=== PATIENT | female | born 1990 | race Caucasian/White ===

== ENCOUNTER 2021-08-16 14:22 | Observation (INO) ==
[2021-08-16] MEDS ORDERED: PROCHLORPERAZINE 10 MG/2 ML VIAL IV ONE (14:46)
[2021-08-16] MEDS ORDERED: morphine 4 MG/ML VIAL IV ONE (14:46)
[2021-08-16] MEDS ORDERED: 0.9 % SODIUM CHLORIDE 1,000 ML IV ONE (14:46)
--- NOTE | 2021-08-16 14:52 | Emergency Department Note ---
Abdominal Pain HPI General Chief Complaint: Abdominal Pain Stated Complaint: Abdominal Pain Time Seen by Provider: 08/16/21 14:26 Source: patient, RN notes reviewed, old records reviewed and other (Provider from [facility] emergency department) Mode of arrival: ambulatory Limitations: no limitations History of Present Illness HPI Narrative: Narrative: 30-year-old female complaining of right upper quadrant pain x3 days moderate pain increasing in intensity. Patient has been diagnosed with gallstones in the past. Patient was seen and another emergency department treated for pain with IV fluids labs were done and then patient ultrasound was obtained today positive for cholecystitis. Patient is referred to [facility] emergency department for evaluation by general surgeon. Complaint: abdominal pain Onset (ago): day(s) (3) Consistency: constant Location: RUQ Severity: moderate Quality: aching Radiation: back Migration to: no migration Improves with: nothing Worsens with: eating Context: history of similar episodes Associated symptoms: Reports nausea, vomiting and anorexia; Denies diarrhea, fever, chills, constipation, dysuria, hematemesis, hematochezia, melena, hematuria, syncope and other Treatments prior to arrival: prescription analgesics Related Data Previous Rx's Medication Instructions Recorded promethazine 25 mg PO Q4-6HP PRN #14 tab 04/01/20 Allergies Allergy/AdvReac Type Severity Reaction Status Date / Time latex Allergy Rash Verified 04/01/20 16:12 Review of Systems ROS ROS Narrative: Narrative: All systems ED: reviewed and negative except as stated. [facility] Narrative Patient History Narrative: Narrative: Medical/Surgical/Family History All Active Problems (Updated 08/16/21 @ 14:52 by Carlos Bruce MD) Benign paroxysmal positional vertigo (Acute) Acute cholecystitis (Acute) Social History Smoking Status: Never smoker Exam Narrative Narrative: Narrative: General Limitations: no limitations General appearance: Present alert and in no apparent distress Head Head: Present atraumatic and normocephalic Eye Eye: Present normal appearance, PERRL and EOMI ENT ENT: Present normal exam and mucous membranes moist Neck Neck: Present normal inspection and full ROM Chest Chest: Present normal inspection; Absent tenderness Respiratory Respiratory: Present normal lung sounds bilaterally; Absent respiratory distress Cardiovascular Cardiovascular: Present regular rate and normal rhythm; Absent systolic murmur Adbominal Abdominal: Present soft, tenderness, rigidity, diminished bowel sounds and Easton's sign; Absent distention, guarding, rebound, organomegaly, trauma, psoas sign, tenderness at McBurney's Point, ascites, mass, bruit, pulsatile mass, hernia and scar Extremities Extremities: Present normal inspection and full ROM; Absent tenderness, pedal edema and pretibial edema Back Back: Present normal inspection; Absent CVA tenderness (R) and CVA tenderness (L) Neurological Neurological: Present alert and oriented X3 Psychiatric Psychiatric: Present normal affect and normal mood Skin Skin: Present warm (WNL); Absent rash Course Vital Signs Vital signs: Vital Signs Temperature 98.1 F 08/16/21 14:24 Pulse Rate 92 H 08/16/21 14:24 Respiratory Rate 18 08/16/21 14:24 Blood Pressure 103/50 08/16/21 14:24 Pulse Oximetry (%) 99 08/16/21 14:24 Temperature 98.1 F 08/16/21 14:24 Pulse Rate 92 H 08/16/21 14:24 Respiratory Rate 18 08/16/21 14:24 Blood Pressure 103/50 08/16/21 14:24 Pulse Oximetry (%) 99 08/16/21 14:24 [facility] MDM Narrative Medical decision making narrative: Narrative: Patient arrives with gallstones positive cholecystitis ultrasound report labs from yesterday that are unremarkable her urine dip and urine are negative here in the emergency department. Patient was recently placed on n.p.o. received IV fluids and I discussed patient Dr. Hiro Narayan of general surgery who graciously agreed to evaluate patient in the emergency department. 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
[2021-08-16] MEDS ORDERED: ONDANSETRON 4 MG/2 ML VIAL IV PRN (15:00)
--- NOTE | 2021-08-16 15:00 | General Surg History&Physical ---
HPI History of Present Illness Patient information: Note initiated : 08/16/21 at 2:56 pm Service Date, if different from initiated Date: [] Patient: Tonja Wooten a 30 y/o F admitted on for Abdominal Pain. Chief Complaint: [] Chief complaint: Preop: Abdominal pain History of present illness: Ms. Wooten is a 30 year old F who has a long history of biliary colic who presented to [facility] to emergency room with 2-day history of right upper quadrant abdominal pain. By report white count and LFTs are normal at that time, right upper quadrant ultrasound was done which is consistent with acute cholecystitis. Patient denies any fevers or chills, has mild nausea and has had persistent right upper quadrant abdominal pain for the last 2 days. She does report that this has been going on for the last 1 to 2 years but she has never had an attack that has lasted this long or been this severe. She was transferred to our emergency room where is asked to evaluate her for acute cholecystitis. Review of Systems Review of systems: All systems are reviewed, negative other than above PFSH PFSH All Active Problems (Updated 08/16/21 @ 14:58 by Hiro Narayan MD) Benign paroxysmal positional vertigo (Acute) Acute cholecystitis (Acute) Medical History (Updated 08/16/21 @ 14:58 by Hiro Narayan MD) Endometriosis Hypothyroid Surgical History (Updated 08/16/21 @ 14:58 by Hiro Narayan MD) H/O laparoscopy Social History (Updated 08/16/21 @ 14:59 by Hiro Narayan MD) lives independently: Yes hx recent travel: No sexually active: Yes MEDS/ALLERGIES Home Medications and Allergies Home Medications Medication Instructions Recorded Confirmed Type promethazine 25 mg PO Q4-6HP PRN #14 tab 04/01/20 Rx Allergies Allergy/AdvReac Type Severity Reaction Status Date / Time latex Allergy Rash Verified 04/01/20 16:12 Physical Examination Vital Signs Vital signs: Temp Pulse Resp BP Pulse Ox 98.1 F 92 H 18 103/50 99 08/16/21 14:24 08/16/21 14:24 08/16/21 14:24 08/16/21 14:24 08/16/21 14:24 General physical appearance General physical exam: well developed, well nourished and no distress Eyes Eye exam: PERRL and normal ocular movement ENT ENT exam: normal pinna, normal nares, normal mucosa, no hearing loss and no tamara estion Head Head exam IM: Present atraumatic and normocephalic Neck Neck exam: no masses, no bruits, trachea midline, no lymphadenopathy and no venous distension Cardiovascular Cardiovascular exam IM: Present normal rate and rhythm Respiratory Respiratory exam: normal expansion, normal respiratory effort, clear to percussion and clear to auscultation Abdomen Abdomen: Present soft, tender (RUQ) and bowel sounds; Absent guarding, rigid and rebound Hernia: Present none Genitourinary Genitourinary (Female): Present normal external genitalia Rectum Rectum: Present normal sphincter tone, no hemorrhoids, no tenderness, no masses and no bleeding Integumentary Integumentary: Present no rash, no growths and no abnormal pigmentation Neurologic Neurologic: Present normal coordination and normal sensation Musculoskeletal Musculoskeletal: Present normal gait and normal posture Psychiatric Psychiatric: Present oriented to time, oriented to person, oriented to place, speech is normal and memory intact Results Labs Labs: All other labs normal. A/P Assessment and plan (1) Acute cholecystitis: Status: Acute Narrative A/P Narrative: This is a pleasant 30-year-old female who presents with signs symptoms consistent with acute cholecystitis. Risk, benefits, alternatives to treatment and surgery discussed with the patient at length. She verbalizes understanding and all of her questions are answered. She desires to continue with the procedure. Plan: Admit, n.p.o. Laparoscopic cholecystectomy at next available OR time. Time Spent With Patient Time: Total time spent is greater than 50% in coordination of care (as documented) at patient's floor/unit and/or counseling patient:
[2021-08-16] MEDS: diphenhydrAMINE 50 MG/ML VIAL IV ONE ×2 (15:12→15:26)
[2021-08-16] MEDS: LACTATED RINGERS 1,000 ML IV SCH (20:22)
[2021-08-17] MEDS: HYDROmorphone 0.5 MG/0.5 ML SYRINGE IV PRN ×2 (02:31→10:17)
[2021-08-17] MEDS: LACTATED RINGERS 1,000 ML IV SCH ×2 (03:59→16:12)
[2021-08-17] MEDS ORDERED: SCOPOLAMINE 1 PATCH PATCH TOPICAL PRN (08:00)
[2021-08-17] MEDS ORDERED: IPRATROPIUM/ALBUTEROL 3 ML AMPUL.NEB NEB PRN ×2 (08:00→12:42)
[2021-08-17] MEDS ORDERED: ceFAZolin 2 GM in DEXTROSE 5% IN WATER 50 ML IV SCH (12:15)
[2021-08-17] MEDS ORDERED: ROCURONIUM 10 MG/ML ML IV ONE (12:20)
[2021-08-17] MEDS ORDERED: LIDOCAINE HCL/PF 100 MG/5 ML SYRINGE IV ONE (12:20)
[2021-08-17] MEDS ORDERED: MAGNESIUM SULFATE 2 GM/50 ML BAG IV ONE (12:20)
[2021-08-17] MEDS ORDERED: KETAMINE 50 MG/ML Syringe (ANEST) IV ONE (12:20)
[2021-08-17] MEDS ORDERED: PROPOFOL 200 MG/20 ML VIAL IV ONE (12:20)
[2021-08-17] MEDS ORDERED: fentaNYL 250 MCG/5 ML VIAL IV ONE (12:20)
[2021-08-17] MEDS ORDERED: DEXAMETHASONE 10 MG/ML VIAL ONE (12:20)
[2021-08-17] MEDS ORDERED: SUGAMMADEX SODIUM 200 MG/2 ML VIAL IV ONE (12:20)
[2021-08-17] MEDS ORDERED: ONDANSETRON 4 MG/2 ML VIAL ONE (12:20)
[2021-08-17] MEDS ORDERED: PROMETHAZINE 25 MG/ML VIAL IV PRN (12:42)
[2021-08-17] MEDS ORDERED: LACTATED RINGERS 250 ML IV PRN (12:42)
[2021-08-17] MEDS ORDERED: KETOROLAC 30 MG/ML VIAL IV PRN (12:42)
[2021-08-17] MEDS ORDERED: ACETAMINOPHEN 1,000 MG/100 ML BAG IV ONE (12:42)
[2021-08-17] MEDS ORDERED: MEPERIDINE 25 MG/ML VIAL IV PRN (12:42)
[2021-08-17] MEDS ORDERED: BENZOCAINE/MENTHOL 1 LOZENGE PO PRN (12:42)
[2021-08-17] MEDS ORDERED: ONDANSETRON 4 MG/2 ML VIAL IV PRN (12:42)
[2021-08-17] MEDS ORDERED: diphenhydrAMINE 50 MG/ML VIAL IV PRN (12:42)
[2021-08-17] MEDS ORDERED: LACTATED RINGERS 1,000 ML IV SCH (12:45)
[2021-08-17] MEDS ORDERED: LIDOCAINE W/EPI 1% 20 ML, BUPIVACAINE 0.5% 20 ML IJ ONE (12:54)
[2021-08-17] MEDS ORDERED: oxyCODONE HCL 5 MG TABLET PO PRN (13:26)
[2021-08-17] MEDS ORDERED: ACETAMINOPHEN 325 MG TABLET PO PRN (13:26)
--- NOTE | 2021-08-17 13:26 | Operative Note ---
Brief Operative Note Date of procedure: 08/17/21 Pre-op diagnosis: Acute cholecystitis Post-op diagnosis: same Procedure: Laparoscopic cholecystectomy Grafts/Implants: No Anesthesia: GETA Findings: Consistent with acute cholecystitis, cholelithiasis Complications: none Surgeon: Hiro Narayan Estimated blood loss (cc): 25 Specimens Removed/Pathology: other (Gallbladder and contents) Condition: stable Disposition: PACU Operative Note Operative Note: After risk benefits and alternatives to the procedure were discussed with the patient at length she verbalized understanding and desire to continue with the procedure. Patient was taken main operating room placed upon the operative table. General anesthesia was induced over endotracheal tube. Patient was prepped and draped in the standard sterile surgical fashion. Surgical timeout was taken to verify patient and procedure being performed. 1% lidocaine half percent Marcaine was used for local anesthesia throughout the case. Left upper quadrant incision was made, a varies needle was inserted and the abdominal cavity was insufflated with carbon dioxide. The abdominal cavity was then entered under direct vision using a 5 mm Optiview trocar through a supraumbilical incision. Visual inspection revealed no injuries and the varies needle was removed under direct vision. 12 mm upper midline trocar, 5 mm right upper quadrant, and a second 5 mm right upper quadrant trochars were all placed under direct vision. Patient was placed in a head up right side up position. Attention was turned to the gallbladder where there is a large amount of adhesions to the omentum, these were carefully taken down with blunt and electrocautery dissection. Attention was turned to the fundus where the peritoneal attachments were taken down and then the triangle JOSTIN was carefully dissected free with blunt dissection. Once a critical view of safety was clearly identified the cystic duct and cystic artery were surgically clipped and transected. The gallbladder was removed from the gallbladder fossa using electrocautery this placed in Endo Catch bag removed through the upper midline incision and passed off the field for surgical pathology. Attention was turned back to the gallbladder fossa which was copiously irrigated and hemostasis was obtained with electrocautery. All irrigant was suctioned free from the abdominal cavity.. The upper midline fascial defect was then reapproximated with a interrupted 0 Vicryl suture. CO2 and trochars were removed from the abdominal cavity under direct vision. Trocar sites were inspected for hemostasis. Skin edges were closed with interrupted 4 Monocryl sutures skin glue dressings were applied. Patient was then awakened from anesthesia transported postanesthesia care unit awake alert in good condition.
[2021-08-17] MEDS ORDERED: IBUPROFEN 200 MG TABLET PO PRN (13:28)
--- NOTE | 2021-08-17 13:33 | Discharge Summary ---
Discharge Provider Provider Patient information: Note initiated : 08/17/21 at 1:32 pm Service Date, if different from initiated Date: [] Patient: Tonja Wooten 30 y/o F admitted on 08/16/21 for Abdominal Pain. Chief Complaint: [] Date of admission: 08/16/21 16:15 Discharge date: 08/17/21 Primary care physician: PCP No Consults: 08/16/21 Consult to Physician [CONS] Stat Comment: Consulting Provider: Hiro Narayan Reason For Exam: Physician to Consult COURSE Hospital Course Hospital course: Patient is mated for acute cholecystitis, was taken to the operating room and underwent an uneventful laparoscopic cholecystectomy Discharge diagnosis: Status post cholecystectomy Time Spent with Patient Time attestation: Total time spent providing and/or coordinating discharge services: Physical Examination Vital Signs Vital signs: Temp Pulse Resp BP Pulse Ox 97.3 F 78 13 112/55 100 08/17/21 13:23 08/17/21 13:27 08/17/21 13:27 08/17/21 13:26 08/17/21 13:27 Discharge Plan Patient/Caregiver Discharge Instructions Activity: increase activity as tolerated Diet: Regular Diet Prescriptions: New ibuprofen 800 mg tablet 800 mg PO TID PRN (Reason: pain) Qty: 60 RF: 0 acetaminophen [Tylenol 8 Hour] 650 mg tablet extended release 650 mg PO Q8H PRN (Reason: pain) Qty: 60 RF: 0 oxycodone 5 mg tablet 5 mg PO Q6H PRN (Reason: pain) Qty: 5 RF: 0 Continued levothyroxine 25 mcg tablet 25 mcg PO DAILY RF: 0 Follow Up Plan Prognosis: Good Discharge Orders: Discharge Order (Routine); Ordered 08/17/21 Ordered By: Hiro Narayan Pending Pending Pending: Resuscitation Status Resuscitate (Full Code) Diet Regular Diet Start Leigh Ann Aug 17 132 Hydromorphone HCl (Hydromorphone 0.5 Mg/0.5 Ml Syringe) 0.5 mg IV Q2HP PRN; Protocol PRN Reason: Per Pain Protocol Last Admin: 08/17/21 10:17 Dose: 0.5 mg Documented by: Admin: 08/17/21 02:31 Dose: 0.5 mg Documented by: [email or web address] Lactated Ringer's (Lactated Ringers) 1,000 mls @ 125 mls/hr IV .Q8H ANGELA Last Infusion: 08/17/21 12:00 Dose: 0 mls/hr Documented by: Admin: 08/17/21 03:59 Dose: 125 mls/hr Documented by: Infusion: 08/17/21 03:59 Dose: 125 mls/hr Documented by: Admin: 08/16/21 20:22 Dose: 125 mls/hr Documented by: SURAJ Cefazolin Sodium 2 gm/ (Dextrose) 50 mls @ 100 mls/hr IV PREOP ANGELA; Protocol Stop: 08/17/21 17:00 Last Admin: 08/17/21 12:16 Dose: 100 mls/hr Documented by: KARLA Shift Summary 08/17/21 05:17 Shift Summary by Analisa Kerr Admitted for cholecystitis. will be having surgery today around noon. Up w/SBA to BR. Voiding dark urine. Had pain meds once. Will d/c home once cleared by Initialized on 08/17/21 05:17 - END OF NOTE
[2021-08-17] MEDS: fentaNYL 100 MCG/2 ML VIAL IV PRN ×4 (13:45→13:59)
--- NOTE | 2021-08-18 10:09 | Surgical Pathology Report ---
Histology Microscopic Diagnosis Specimen A- GALLBLADDER, CHOLECYSTECTOMY: --- NECROTIZING ACUTE AND CHRONIC CHOLECYSTITIS. --- CHOLELITHIASIS. --- PERICYSTIC LYMPH NODE WITH REACTIVE LYMPHOID HYPERPLASIA. (DMT) Procedural Impression Cholelithiasis. Gross Description Received in formalin labeled gallbladder, is a purple-smith gallbladder. It is 7.5 x 3.9 x 2.4 cm. There are metal clips on the duct. Near the duct there is a firm, harden nodule. It is 0.9 x 0.6 cm. Wedged within the duct is a 0.8 cm stone. The specimen contains viscous red sludge and an additional 0.9 cm stone. The mucosa is mottled, red and purple-harden. The wall is up to 0.9 cm. Grossly there are no areas of perforation identified. Accounting Analyst sections are submitted in one cassette. (SCB:adj) Electronically Signed Ned Lock MD, FCAP Electronically Signed 08/18/2021 10:07
== END 2021-08-17 20:15 | disposition home or self-care (01) ==
LOC: ED 14:22 → MEDSUR 14:22
PROVIDERS: ADMIT Surgery; ATTEND Surgery